=== PATIENT | male | born 1955 | race Caucasian/White ===

== ENCOUNTER → 2017-12-23 | Outpatient (CLI) | payer BC ==
[2017-12-23 10:17] LABS: HEMATOCRIT 46.4 % (42.0-52.0); HEMOGLOBIN 15.3 g/dl (14.0-18.0); MEAN CORPUSCULAR HEMOGLOBIN 30.8 pg (27.0-33.0); MEAN CORPUSCULAR VOLUME 93.5 fl (80.0-96.0); PLATELET COUNT, AUTOMATED 304 10^3/uL (150-450); RED BLOOD COUNT 4.96 10^6/uL (4.30-6.10); RED CELL DISTRIBUTION WIDTH 13.3 % (11.5-14.5); WHITE BLOOD COUNT 8.3 10^3/uL (4.0-10.0)
[2017-12-23 10:32] LABS: INR 0.88
[2017-12-23 10:35] LABS: ERYTHROCYTE SEDIMENTATION RATE 12 mm/hr (0-20)
[2017-12-23 10:36] LABS: APPEARANCE, URINE CLEAR (CLEAR); BACTERIA, URINE AUTO NEGATIVE (NEGATIVE); BILIRUBIN, URINE AUTO NEGATIVE (NEGATIVE); BLOOD, URINE BLOOD NEGATIVE (NEGATIVE); COLOR, URINE YELLOW (YELLOW); GLUCOSE, URINE (UA) AUTO NEGATIVE (NEGATIVE); KETONE, URINE AUTO NEGATIVE (NEGATIVE); LEUKOCYTE ESTERASE, URINE AUTO NEGATIVE (NEGATIVE); NITRITE, URINE AUTO NEGATIVE (NEGATIVE); PROTEIN, URINE AUTO NEGATIVE (NEGATIVE); RBC, URINE AUTO 3 /HPF (0-3); SQUAMOUS EPITHELIAL CELL UR AU 0 /HPF (0-6); UROBILINOGEN, URINE AUTO 0.2 mg/dL (0.0-2.0); WBC, URINE AUTO 2 /HPF (0-3)
[2017-12-23 11:20] LABS: ALBUMIN 4.5 GM/DL (3.2-5.2); ALBUMIN/GLOBULIN RATIO 1.22 (1.00-1.93); ALKALINE PHOSPHATASE 78 U/L (45-117); ALT/SGPT 25 U/L (12-78); ANION GAP 7 MEQ/L (8-16); AST/SGOT 14 U/L (7-37); BILIRUBIN,TOTAL 0.6 MG/DL (0.2-1.0); BLOOD UREA NITROGEN 36 MG/DL (7-18); CALCIUM LEVEL 8.7 MG/DL (8.8-10.2); CARBON DIOXIDE LEVEL 29 MEQ/L (21-32); CHLORIDE LEVEL 103 MEQ/L (98-107); CREATININE FOR GFR 1.35 MG/DL (0.70-1.30); GLOMERULAR FILTRATION RATE 56.8 (>49); GLUCOSE, FASTING 87 MG/DL (70-100); POTASSIUM SERUM 4.4 MEQ/L (3.5-5.1); SODIUM LEVEL 139 MEQ/L (136-145); TOTAL PROTEIN 8.2 GM/DL (6.4-8.2)
== END ==
LOC: M ADMPAT 09:00
DX: Z01.818 Encounter for other preprocedural examination (principal); M16.11 Unilateral primary osteoarthritis, right hip; R00.1 Bradycardia, unspecified; Z79.899 Other long term (current) drug therapy
CPT/HCPCS: 71046

== ENCOUNTER 2018-01-12 10:23 | Inpatient (IN) | payer BC ==
[2018-01-12] MEDS ORDERED: MIDAZOLAM INJ 2 MG/2 ML VIAL (J2250) As Ordered ×2 (11:43→14:24)
[2018-01-12] MEDS ORDERED: fentaNYL 100 MCG/2 ML INJECTION (J3010) As Ordered (11:43)
[2018-01-12] MEDS ORDERED: PROPOFOL 200 MG/20 ML VIAL As Ordered ×2 (11:44)
[2018-01-12] MEDS: LR 1,000 ML IV ×3 (12:11→15:30)
[2018-01-12] MEDS: EPINEPHrine INJ 1 MG/ML 1ML AMP As Ordered (13:51)
[2018-01-12] MEDS: TRANEXAMIC ACID 100 MG/ML 10ML VIAL As Ordered (13:51)
[2018-01-12] MEDS: ceFAZolin 1GM INJ (J0690 PER 500MG) As Ordered (13:51)
[2018-01-12] MEDS ORDERED: MORPHINE 1MG/ML IN 0.9% NACL 100ML IV BAG As Ordered (15:15)
[2018-01-12] MEDS ORDERED: NALOXONE INJ 0.4 MG/1 ML VIAL (J2310) IV (15:30)
[2018-01-12] MEDS ORDERED: MORPHINE 1MG/ML IN 0.9% NACL 100ML IV BAG IV (15:30)
[2018-01-12] MEDS ORDERED: EPIDURAL/PCA KEYS XX (15:30)
[2018-01-12] MEDS ORDERED: fentaNYL 100 MCG/2 ML INJECTION (J3010) IV (15:30)
[2018-01-12] MEDS ORDERED: NALBUPHINE HCL 10 MG/ML AMP (J2300) IV (15:30)
[2018-01-12] MEDS ORDERED: diphenhydrAMINE INJ 50MG/ML VIAL (J1200) IV (15:30)
[2018-01-12] MEDS ORDERED: ONDANSETRON 4MG/2ML VIAL (J2405) IV ×2 (15:30)
[2018-01-12] MEDS ORDERED: FLEET ENEMA PR (15:30)
[2018-01-12] MEDS: MULTIVITAMINS/MINERALS THERAP 1 TAB PO (17:04)
[2018-01-12] MEDS: LISINOPRIL 10 MG TAB PO (17:04)
[2018-01-12] MEDS: WARFARIN SOD 5 MG TAB PO (17:04)
[2018-01-12] MEDS: hydroCHLOROthiazide 25 MG TAB PO (17:05)
[2018-01-12] MEDS: SENOKOT S TAB PO (20:05)
[2018-01-12] MEDS: ONDANSETRON 4MG/2ML VIAL (J2405) IV (20:06)
[2018-01-13] MEDS: LR 1,000 ML IV (04:19)
[2018-01-13 07:00] LABS: HEMATOCRIT 35.6 % (42.0-52.0); HEMOGLOBIN 11.5 g/dl (13.5-17.5); MEAN CORPUSCULAR HEMOGLOBIN 30.4 pg (27.0-33.0); MEAN CORPUSCULAR HGB CONC 32.3 g/dl (32.0-36.5); MEAN CORPUSCULAR VOLUME 94.2 fl (80.0-96.0); PLATELET COUNT, AUTOMATED 261 10^3/uL (150-450); RED BLOOD COUNT 3.78 10^6/uL (4.30-6.10); RED CELL DISTRIBUTION WIDTH 13.7 % (11.5-14.5); WHITE BLOOD COUNT 9.6 10^3/uL (4.0-10.0)
[2018-01-13 07:10] LABS: INR 1.11; PROTHROMBIN TIME 14.5 SECONDS (12.4-14.5)
[2018-01-13 07:14] LABS: ANION GAP 10 MEQ/L (8-16); BLOOD UREA NITROGEN 30 MG/DL (7-18); CALCIUM LEVEL 8.2 MG/DL (8.8-10.2); CARBON DIOXIDE LEVEL 25 MEQ/L (21-32); CHLORIDE LEVEL 108 MEQ/L (98-107); CREATININE FOR GFR 2.15 MG/DL (0.70-1.30); GLOMERULAR FILTRATION RATE 33.2 (>49); GLUCOSE, FASTING 141 MG/DL (70-100); MAGNESIUM LEVEL 1.8 MG/DL (1.8-2.4); POTASSIUM SERUM 4.9 MEQ/L (3.5-5.1); SODIUM LEVEL 143 MEQ/L (136-145)
[2018-01-13] MEDS ORDERED: PERCOCET 5MG/325MG TAB PO (07:15)
[2018-01-13] MEDS ORDERED: ONDANSETRON 4 MG TAB (S0181) PO (07:15)
[2018-01-13] MEDS: MOM 30ML SUSPENSION UDC PO (08:45)
[2018-01-13] MEDS: MIRALAX *UNIT DOSE* 17GM PACKET PO (08:45)
[2018-01-13] MEDS: SENOKOT S TAB PO ×2 (08:46→19:48)
[2018-01-13] MEDS: MULTIVITAMINS/MINERALS THERAP 1 TAB PO (08:46)
[2018-01-13] MEDS: PERCOCET 5MG/325MG TAB PO (08:46)
[2018-01-13] MEDS: NS 1,000 ML IV ×2 (08:46→21:59)
[2018-01-13] MEDS: ACETAMINOPHEN TAB 650MG DOSE (2X325MG) PO ×2 (13:26→18:52)
[2018-01-13] MEDS: WARFARIN SOD 5 MG TAB PO (16:57)
[2018-01-14] MEDS: ACETAMINOPHEN TAB 650MG DOSE (2X325MG) PO ×3 (00:15→10:44)
[2018-01-14 07:13] LABS: HEMATOCRIT 33.2 % (42.0-52.0); MEAN CORPUSCULAR HEMOGLOBIN 31.3 pg (27.0-33.0); MEAN CORPUSCULAR HGB CONC 33.1 g/dl (32.0-36.5); MEAN CORPUSCULAR VOLUME 94.3 fl (80.0-96.0); PLATELET COUNT, AUTOMATED 221 10^3/uL (150-450); RED BLOOD COUNT 3.52 10^6/uL (4.30-6.10); RED CELL DISTRIBUTION WIDTH 13.8 % (11.5-14.5); WHITE BLOOD COUNT 10.4 10^3/uL (4.0-10.0)
[2018-01-14 07:25] LABS: INR 1.67; PROTHROMBIN TIME 20.2 SECONDS (12.4-14.5)
[2018-01-14 07:31] LABS: ANION GAP 7 MEQ/L (8-16); BLOOD UREA NITROGEN 25 MG/DL (7-18); CARBON DIOXIDE LEVEL 26 MEQ/L (21-32); CHLORIDE LEVEL 106 MEQ/L (98-107); CREATININE FOR GFR 1.37 MG/DL (0.70-1.30); GLOMERULAR FILTRATION RATE 55.9 (>49); GLUCOSE, FASTING 113 MG/DL (70-100); MAGNESIUM LEVEL 2.1 MG/DL (1.8-2.4); SODIUM LEVEL 139 MEQ/L (136-145)
[2018-01-14] MEDS ORDERED: NS 1,000 ML IV (09:00)
[2018-01-14] MEDS: MOM 30ML SUSPENSION UDC PO (10:43)
[2018-01-14] MEDS: MULTIVITAMINS/MINERALS THERAP 1 TAB PO (10:44)
[2018-01-14] MEDS: MIRALAX *UNIT DOSE* 17GM PACKET PO (10:44)
[2018-01-14] MEDS: SENOKOT S TAB PO (10:44)
[2018-01-14] MEDS: hydroCHLOROthiazide 25 MG TAB PO (12:45)
[2018-01-14] MEDS: LISINOPRIL 10 MG TAB PO (12:46)
[2018-01-14] MEDS ORDERED: WARFARIN SOD 7.5 MG TAB PO (17:00)
== END 2018-01-14 15:16 | disposition home or self-care (01) | DRG 301 ==
LOC: M OR 10:23 → M MS5PR 16:00
PROC: 0SR904A Replacement of Right Hip Joint with Ceramic on Polyethylene Synthetic Substitute, Uncemented, Open Approach (ICD-10-PCS; principal; 2018-01-12 13:00)
DX: M16.11 Unilateral primary osteoarthritis, right hip (principal); N17.9 Acute kidney failure, unspecified; I10 Essential (primary) hypertension; E78.5 Hyperlipidemia, unspecified; Z98.52 Vasectomy status; Z79.899 Other long term (current) drug therapy; Z79.82 Long term (current) use of aspirin